=== PATIENT | male | born 1965 | race African-American/Black ===

== ENCOUNTER 2024-12-24 16:05 | Emergency (ER) | payer SELFPAY ==
[~2024-12-24] VITALS: Ht 170.2 cm; Wt 77.0 kg
[2024-12-24 16:09] VITALS: O2SAT 98
[2024-12-24] MEDS: SODIUM CHLORIDE 0.9% 1,000 ML IV ONE (17:01)
[2024-12-24 17:35] LABS: CREATININE 0.8 mg/dL (0.6-1.3); UREA NITROGEN BLOOD 12 mg/dL (9-23)
[2024-12-24 17:36] LABS: ETHANOL BLOOD < 10 mg/dL (<10)
[2024-12-24 18:50] VITALS: BP 118/88; PULSE 82; RESP 14; TEMP 36.7; O2SAT 98
== END 2024-12-24 19:14 | disposition left against medical advice (07) ==
LOC: ER 16:05 → EDBD 16:05 → ER 19:14
DX: T40.601A Poisoning by unspecified narcotics, accidental (unintentional), initial encounter (principal); Z79.899 Other long term (current) drug therapy; Y92.89 Other specified places as the place of occurrence of the external cause
CPT/HCPCS: 80048; 80320; 36415; 93005; 96360; 99284; J7030; Z7610; A4606; A4615; G0480